=== PATIENT | male | born 1935 | race Caucasian/White ===

== ENCOUNTER 2019-05-05 12:56 | Inpatient (IN) ==
[2019-05-05] MEDS ORDERED: Acetaminophen 325 MG TABLET PO PRN (15:04)
[2019-05-05] MEDS ORDERED: Ipratropium/Albuterol Neb 3 ML IH PRN (15:08)
[2019-05-05] MEDS ORDERED: 0.9 % Sodium Chloride 1,000 ML IVC SCH (15:30)
--- NOTE | 2019-05-05 17:50 | Internal Med History&Physical ---
Date of Encounter: 05/05/19 Time of Encounter: 17:00 Assessment and Plan (1) PEG tube malfunction Current visit: No Status: Acute Status post PEG tube removal. Continue antibiotics with lactobacillus for 3 days. 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 Continue Aricept. Qualifiers: Dementia type: unspecified type Dementia behavioral disturbance: with behavioral disturbance Qualified Code(s): F03.91 - Unspecified dementia with behavioral disturbance (3) Anemia Current visit: No Status: Acute Anemia testing will be ordered in a.m. Qualifiers: Anemia type: unspecified type Qualified Code(s): D64.9 - Anemia, unspecified (4) CKD (chronic kidney disease) stage 3, GFR 30-59 ml/min Current visit: No Status: Chronic Monitor renal indices. (5) CAD (coronary artery disease) Current visit: No Status: Chronic Reduce aspirin to every other day to avoid worsening anemia. Qualifiers: Coronary Disease-Associated Artery/Lesion type: unspecified vessel or lesion type [place] vs. transplanted heart: unspecified whether [place] or transplanted heart Associated angina: angina presence unspecified Qualified Code(s): I25.10 - Atherosclerotic heart disease of [place] coronary artery without angina pectoris (6) Parkinsons disease Current visit: Yes Status: Chronic I discussed with family I did not think treatment was required at this time Internal Medicine - H&P: HPI Chief complaint: G-tube site infection Admitted From: Hospital to Hospital Transfer Plans for Post Hospital Care: Home History of present illness: Mr. Cam is a 84 year old male who was hospitalized at [facility] April 28 after admission for G-tube site infection. Wound culture grew pseudomonas aeruginosa and MRSA. He was treated with IV antibiotics during the [facility] stay and discharged to swing bed on doxycycline and Levaquin for 3 additional days of treatment. Family reports the plan is for surgery to reinsert a G-tube at a different site in a few days. G-tube was initially inserted in 2017. The patient dislodged it and has had at least 6 replacement tubes since then due to malfunction or accidental removal. He has dementia and cannot consume adequate amount of intake to maintain nutrition and hydration despite still having some oral intake. GI history is pertinent otherwise for cholecystectomy. There is no known disorders of his liver or exocrine pancreas. Past Med Surg Social Fam HX - Past Medical History Medical history: aortic aneurysm, arthritis, CHF, COPD, coronary artery disease, dementia, GERD, hyperlipidemia, hypertension, renal disease, thyroid disease Additional medical history: sepsis Psychiatric history: bipolar - Past Surgical History Surgical History: cholecystectomy, coronary bypass (CABG), other Additional surgical history: Can only MRI of 1.5 due to stents. AAA repair. Pt has enlarged prostate and needs coude if needs brower placed. PEG tube - Social History Smoking Status: Former smoker Smokeless Tobacco Status: No Alcohol use: none Drug use: none - Family History Sister Adopted: No Family Member Ethnicity: Non- Twin of Family Member: Yes, Fraternal Living Status: Still Living Hx Family Cardiac Disorders: Yes (Father from cardiac arrest) Hx Family Respiratory Disorders: No Hx Family Cancer: No Hx Family GI Disorders: No Hx Family Endocrine Disorder: No Hx Family Neuromuscular Disorders: No Hx Family Neurologic Disorders: Yes (Dementia) Hx Family HEENT Disorders: No Hx Family Autoimmune Disorders: No Internal Medicine - H&P: Meds Allopurinol [Zyloprim 300 MG] 300 mg PO DAILY 03/02/18 [History] Divalproex (24 HR) [Depakote ER (24 HR)] 250 mg PO BID 03/02/18 [History] Donepezil [Aricept] 10 mg PO HS 03/02/18 [History] Escitalopram [Lexapro] 10 mg PO HS 03/02/18 [History] Furosemide [Lasix] 20 mg PO DAILY 03/02/18 [History] Thiamine (B-1) [Vitamin B-1] 100 mg PO DAILY tablet 03/03/18 [Rx] Cranberry Fruit [Cranberry] 800 mg PO DAILY 04/02/18 [History] Finasteride [Proscar] 5 mg PO DAILY tablet 04/07/18 [Rx] Aspirin Enteric Coated [Aspirin EC] 81 mg PO DAILY 06/08/18 [History] Ipratropium/Albuterol Neb [Duoneb] 3 ml IH Q6HR PRN 06/08/18 [History] Loperamide [Imodium] 2 mg PO DAILY PRN 06/08/18 [History] Omeprazole [PriLOSEC] 20 mg PO DAILY 06/08/18 [History] Melatonin [Melatin] 3 mg PO HS 04/07/19 [History] Calcium Carbonate [Tums] 1,000 mg PO QID PRN 04/28/19 [History] Cholecalciferol (D-3) [Vitamin D] 4,000 unit PO DAILY 04/28/19 [History] Acetaminophen [Non-Aspirin] 325 mg PO Q6H PRN 04/30/19 [History] Gentamicin Sulfate [Gentak] 1 appl TP Q6H PRN 04/30/19 [History] Lactobacillus Acidophilus [Acidophilus] 1 cap PO DAILY 04/30/19 [History] Valproic Acid [Depakene] 250 mg PO BID 04/30/19 [History] Doxycycline 100 mg PO BID #7 capsule 05/05/19 [Rx] levoFLOXacin [Levaquin] 750 mg PO Q48H #3 tablet 05/05/19 [Rx] Allergy/AdvReac Type Severity Reaction Status Date / Time atorvastatin [From Lipitor] Allergy muscle Verified 04/28/19 18:02 spasm Diclofenac [From Voltaren] Allergy See Verified 04/28/19 18:02 Comments midazolam [From Versed] Allergy Anxiety Verified 04/28/19 18:02 amnesia nitrofurantoin Allergy Nausea Verified 04/28/19 18:02 [From Macrobid] vomiting oxycodone [From Percocet] Allergy See Verified 04/28/19 18:02 Comments quetiapine [From Seroquel] Allergy Drowsy Verified 04/28/19 18:02 All Systems PM: A 10-system review of systems was performed and is negative for pertinent findings except as documented above in the HPI. Review of systems: Gen.: His weight has decreased approximately 10 pounds in the past month Cardiovascular: He has history of hypertension and has known ASHD status post 3 vessel CABG followed by 3 stents approximately 2008. He had abdominal aortic aneurysm repair. He has a diagnosis of heart failure. Echocardiogram 12/22/2017 showed LVEF of 60%. No significant valvular abnormality was seen. Interventricular septum and posterior wall thickness measurements were elevated at 1.40 cm each. E/A ratio was 0.8. There was no reported pulmonary hypertension. There is no history of DVT or pulmonary embolus. Respiratory: He smoked from approximately age [age] up to 2 packs per day. He has a diagnosis of COPD uses oxygen on a prn basis at home. 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 He follows with a [employer] technician. He has bladder irrigation 3 times weekly with a vinegar/water solution for frequent UTIs. Neurologic: He has dementia. He has had frontal and left parietal CVAs docu mented on MRI/CT scans in the past. There is no history of seizures. Endocrine: He has history of hyperlipidemia. Family was unaware of elevated TSH on most recent labs. He has no known diabetes. Hematology/oncology: He has chronic anemia from presumed CKD. There is no known internal malignancies or other blood disorders. Psychiatric: He was diagnosed with bipolar disorder in the past. He has no other mental health diagnoses. Muscle skeletal: He has DJD and history of gout. - Constitutional Vitals: Temp Pulse Resp BP Pulse Ox 98.3 F 85 17 147/91 94 05/05/19 16:56 05/05/19 16:56 05/05/19 16:56 05/05/19 16:56 05/05/19 16:56 Exam: Gen.: He is a well-developed well-nourished male resting comfortably in bed who appears in no acute distress HEENT: Head is atraumatic and normocephalic. Eyes: EOMI. There is no scleral icterus. Mouth: Mucosa is moist. Neck: Supple and nontender. There is no thyromegaly or adenopathy noted. Heart: Regular without murmurs gallops or ectopics Lungs: No wheezes or crackles are heard. Abdomen: Soft and nontender. A dressing is in place at the G-tube site. I did not remove the dressing. There is a well-healed midline abdominal surgical scar from previous AAA surgery. Extremities: He has mild DJD changes of his hands. There is no cyanosis edema or clubbing noted. Dorsalis pedis and posterior tibial pulses are trace palpable bilaterally. Neurologic: Mental status: He is awake and alert and answers an occasional question with a one-word answer. He is not conversational. He does not follow all commands. Cranial nerves: Smile is symmetric. Forehead wrinkles bilaterally. EOMI. He does not protrude his tongue. Motor: He has significant stiffness rigidity and cogwheeling on passive range of motion of his wrists and elbows. He has a tremor at rest of his jaw. No further neurologic testing is attempted. Skin: Warm and dry
[2019-05-05] MEDS: Aspirin Enteric Coated 81 MG Tablet PO SCH (18:23)
[2019-05-05] MEDS: 0.45 % Sodium Chloride w/KCl 20 MEQ/1,000 ML MLS IVC SCH (18:45)
[2019-05-05] MEDS ORDERED: *HR* Metoprolol 5 MG/5 ML VIAL IVP ONE (19:49)
[2019-05-05] MEDS ORDERED: Valproic Acid 250 MG CAPSULE PO SCH (21:00)
[2019-05-05] MEDS: Acetaminophen 325 MG TABLET PO SCH (22:33)
[2019-05-05] MEDS: Doxycycline 100 MG CAPSULE PO SCH (22:33)
[2019-05-05] MEDS: Divalproex (24 HR) 250 MG TABLET PO SCH (22:33)
[2019-05-05] MEDS: levoFLOXacin 500 MG TABLET PO SCH (22:34)
[2019-05-06] MEDS: Melatonin 3 MG TABLET PO SCH ×2 (04:25→22:12)
[2019-05-06 05:52] LABS: Basophils % 0.5 %; Eosinophils # 0.3 K/mcL (0.0-0.6); Eosinophils % 3.3 %; Hematocrit 27.9 % (37.5-50.1); Immature Granulocytes % 0.9 % (0-4); Lymphocytes # 1.7 K/mcL (0.6-4.6); Lymphocytes % 21.6 %; Mean Corpuscular HGB Conc 32.3 g/dL (31.6-35.5); Mean Corpuscular Hemoglobin 29.4 pg (28.0-33.3); Mean Corpuscular Volume 91.2 fL (83.0-100.0); Mean Platelet Volume 10.6 fL (9.4-12.4); Monocytes # 0.4 K/mcL (0.0-1.3); Monocytes % 5.1 %; Neutrophils # 5.5 K/mcL (1.6-8.9); Platelet Count 114 K/mcL (140-400); Red Blood Count 3.06 M/mcL (4.19-5.50); Red Cell Distribution Width 16.5 % (11.5-14.5); Segmented Neutrophils % 68.6 %
[2019-05-06 06:19] LABS: Alanine Aminotransferase 3 Units/L (7-52); Albumin 3.1 g/dL (3.5-5.7); Albumin/Globulin Ratio 0.9 (1.1-2.2); Alkaline Phosphatase 45 Units/L (34-104); Aspartate Amino Transferase 10 Units/L (13-39); BUN/Creatinine Ratio 12 (6-26); Bilirubin,Total 0.5 mg/dL (0.3-1.0); Blood Urea Nitrogen 16 mg/dL (8-23); Calcium 8.6 mg/dL (8.6-10.3); Carbon Dioxide 22 mEq/L (23-29); Chloride 103 mEq/L (98-107); Globulin 3.3 g/dL (2.4-3.5); Glucose 91 mg/dL (70-105); Osmolality,Calculated 283 (280-300); Potassium 3.9 mEq/L (3.5-5.1); Sodium 136 mEq/L (136-145); Total Protein 6.4 g/dL (6.4-8.9); eGFR For African Americans > 60 (> 60); eGFR For Non-African Americans 50 (> 60)
[2019-05-06 06:29] LABS: Thyroid Stimulating Hormone 4.489 mcIU/mL (0.340-5.600)
[2019-05-06 08:46] LABS: Transferrin 152 mg/dL (203-362)
[2019-05-06] MEDS ORDERED: Thiamine (B-1) 100 MG TABLET PO SCH (09:00)
[2019-05-06] MEDS ORDERED: Aspirin Enteric Coated 81 MG Tablet PO SCH (09:00)
[2019-05-06] MEDS ORDERED: CRANBERRY FRUIT PO SCH (09:00)
[2019-05-06 09:04] LABS: Ferritin 501 ng/mL (20-250)
[2019-05-06 09:10] LABS: Folate 7.6 ng/mL (3.0-16.0)
[2019-05-06] MEDS: Lactobacillus 1 EACH CAP.SPRINK PO SCH (09:25)
[2019-05-06] MEDS: Acetaminophen 325 MG TABLET PO SCH ×2 (09:25→22:12)
[2019-05-06] MEDS: Furosemide 20 MG TABLET PO SCH (09:25)
[2019-05-06] MEDS: Doxycycline 100 MG CAPSULE PO SCH ×2 (09:25→22:12)
[2019-05-06] MEDS: Divalproex (24 HR) 250 MG TABLET PO SCH ×2 (09:25→22:12)
[2019-05-06] MEDS: Finasteride 5 MG TABLET PO SCH (09:25)
[2019-05-06 10:22] LABS: % Iron Saturation 23 % (20-55); Iron 49 mcg/dL (65-175)
[2019-05-06] MEDS: Cholecalciferol (D-3) 1,000 UNIT (25MCG) TABLET PO SCH (11:02)
[2019-05-06] MEDS: 0.45 % Sodium Chloride w/KCl 20 MEQ/1,000 ML MLS IVC SCH (11:07)
--- NOTE | 2019-05-06 11:08 | Internal Med Progress Note ---
Date of Encounter: 05/06/19 Time of Encounter: 11:00 - Assessment and plan (1) PEG tube malfunction Current Visit: No Status: Acute Assessment and plan: May 06. Status post PEG tube removal. Continue antibiotics with lactobacillus through May 08. (2) Dementia Current Visit: No Status: Chronic Assessment and plan: May 06. 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 Continue Aricept. Qualifiers: Dementia type: unspecified type Dementia behavioral disturbance: with behavioral disturbance Qualified Code(s): F03.91 - Unspecified dementia with behavioral disturbance (3) Anemia Current Visit: No Status: Acute Assessment and plan: May 06. Anemia testing showed iron 49, transferrin saturation 23%, transferrin 152, ferritin 501, B12 718, and folate 7.6. Anemia is likely due to chronic kidney disease. Hemoglobin improved today to 9.0. Continue to monitor. Qualifiers: Anemia type: unspecified type Qualified Code(s): D64.9 - Anemia, unspecified (4) CKD (chronic kidney disease) stage 3, GFR 30-59 ml/min Current Visit: No Status: Chronic Assessment and plan: May 06. Creatinine stable today at 1.35. Continue to monitor. (5) CAD (coronary artery disease) Current Visit: No Status: Chronic Assessment and plan: May 06. Remain on aspirin 81 mg every other day. Qualifiers: Coronary Disease-Associated Artery/Lesion type: unspecified vessel or lesion type [place] vs. transplanted heart: unspecified whether [place] or transplanted heart Associated angina: angina presence unspecified Qualified Code(s): I25.10 - Atherosclerotic heart disease of [place] coronary artery without angina pectoris (6) Parkinsons disease Current Visit: Yes Status: Chronic Assessment and plan: May 06. Observe without medication. (7) Dyspnea Current Visit: Yes Status: Acute Assessment and plan: May 06. Will order chest x-ray and BNP peptide. Qualifiers: Dyspnea type: unspecified Qualified Code(s): R06.00 - Dyspnea, unspecified - Subjective Interval history: May 06. No new problems have arisen. His jymsyllw-ac-nnw states she is concerned he appears dyspneic. - Constitutional Vitals: Temp Pulse Resp BP Pulse Ox 98.1 F 80 18 169/89 99 05/06/19 06:49 05/06/19 06:49 05/06/19 10:47 05/06/19 06:49 05/06/19 10:47 Exam: He is lying in bed and appears in no significant distress. His respirations appear very minimally labored. I reviewed his medications, vitals, and lab results. Internal Medicine: Result - Labs CBC & Chem 7: 05/06/19 05:10 05/06/19 05:10 Labs: Short CBC 05/06/19 Range/Units 05:10 WBC 8.0 D (4.3-11.1) K/mcL Hgb 9.0 L D (12.9-16.9) g/dL Hct 27.9 L (37.5-50.1) % Plt Count 114 L (140-400) K/mcL Neutrophils # 5.5 (1.6-8.9) K/mcL BMP 05/06/19 05:10 Sodium 136 Potassium 3.9 Chloride 103 Carbon Dioxide 22 L BUN 16 Creatinine 1.35 H Glucose 91 Calcium 8.6 Liver Function 05/06/19 Range/Units 05:10 Total Bilirubin 0.5 (0.3-1.0) mg/dL AST 10 L (13-39) Units/L ALT 3 L (7-52) Units/L Alkaline Phosphatase 45 (34-104) Units/L Albumin 3.1 L (3.5-5.7) g/dL Consult Discharge Plan - Plan [facility]errals: [facility]Primary Care Provider[facility] - 1 week
[2019-05-06] MEDS ORDERED: Furosemide 40 MG/4 ML VIAL IVP ONE (14:28)
[2019-05-07] MEDS: Divalproex (24 HR) 250 MG TABLET PO SCH ×3 (01:18→22:23)
[2019-05-07] MEDS: Doxycycline 100 MG CAPSULE PO SCH ×3 (01:18→22:23)
[2019-05-07] MEDS: Melatonin 3 MG TABLET PO SCH ×2 (01:19→22:22)
[2019-05-07] MEDS: Acetaminophen 325 MG TABLET PO SCH ×3 (01:20→22:22)
[2019-05-07 06:18] LABS: Basophils % 0.6 %; Eosinophils # 0.2 K/mcL (0.0-0.6); Eosinophils % 2.9 %; Hematocrit 25.7 % (37.5-50.1); Hemoglobin 8.4 g/dL (12.9-16.9); Immature Granulocytes % 0.6 % (0-4); Lymphocytes # 1.5 K/mcL (0.6-4.6); Lymphocytes % 21.2 %; Mean Corpuscular HGB Conc 32.7 g/dL (31.6-35.5); Mean Corpuscular Hemoglobin 29.7 pg (28.0-33.3); Mean Corpuscular Volume 90.8 fL (83.0-100.0); Mean Platelet Volume 10.3 fL (9.4-12.4); Monocytes # 0.4 K/mcL (0.0-1.3); Neutrophils # 4.8 K/mcL (1.6-8.9); Platelet Count 106 K/mcL (140-400); Red Blood Count 2.83 M/mcL (4.19-5.50); Red Cell Distribution Width 16.4 % (11.5-14.5); Segmented Neutrophils % 68.7 %
[2019-05-07 06:52] LABS: Calcium 8.4 mg/dL (8.6-10.3); Potassium 3.9 mEq/L (3.5-5.1)
[2019-05-07] MEDS: Lactobacillus 1 EACH CAP.SPRINK PO SCH (09:16)
[2019-05-07] MEDS: Cholecalciferol (D-3) 1,000 UNIT (25MCG) TABLET PO SCH (09:16)
[2019-05-07] MEDS: Furosemide 20 MG TABLET PO SCH (09:16)
[2019-05-07] MEDS: Finasteride 5 MG TABLET PO SCH (09:16)
[2019-05-07] MEDS: Aspirin Enteric Coated 81 MG Tablet PO SCH (17:04)
[2019-05-07] MEDS: levoFLOXacin 500 MG TABLET PO SCH (22:22)
[2019-05-08] MEDS: Furosemide 20 MG TABLET PO SCH (12:43)
[2019-05-08] MEDS: Cholecalciferol (D-3) 1,000 UNIT (25MCG) TABLET PO SCH (12:43)
[2019-05-08] MEDS: Lactobacillus 1 EACH CAP.SPRINK PO SCH (12:43)
[2019-05-08] MEDS: Doxycycline 100 MG CAPSULE PO SCH ×2 (12:43→21:17)
[2019-05-08] MEDS: Acetaminophen 325 MG TABLET PO SCH ×2 (12:43→21:18)
[2019-05-08] MEDS: Divalproex (24 HR) 250 MG TABLET PO SCH ×2 (12:43→21:18)
[2019-05-08] MEDS: Finasteride 5 MG TABLET PO SCH (12:43)
--- NOTE | 2019-05-08 13:31 | Event Note ---
Date of Encounter: 05/08/19 Time of Encounter: 13:31 Called to bedside as daughter concerned that patient was not getting enough fluid intake. Suspect oral intake appox 600cc/day. Will add NS at 50ml/hr to arrive at 1200cc/d of IVF. Will continue other meds and order labs for AM along with CXR to re-assess.
[2019-05-08] MEDS: 0.9 % Sodium Chloride 1,000 ML IVC SCH (14:27)
[2019-05-08 16:21] LABS: Bilirubin,Urine Negative (Negative); Blood,Urine Small (Negative); Clarity,Urine Clear (Clear); Color,Urine Yellow (Yellow); Glucose,Urine (UA) Normal (Normal); Ketones,Urine Negative (Negative); Leukocyte Esterase,Urine Negative (Negative); Nitrite,Urine Negative (Negative); PH,Urine 5.5 pH Units (5.0-8.0); Protein,Urine 30 mg/dL (Neg-Trace); Specific Gravity,Urine 1.015 (1.010-1.025); Urobilinogen,Urine Normal (Normal)
[2019-05-09 06:59] LABS: Albumin 2.9 g/dL (3.5-5.7); Albumin/Globulin Ratio 0.9 (1.1-2.2); Bilirubin,Total 0.5 mg/dL (0.3-1.0); Calcium 8.4 mg/dL (8.6-10.3); Globulin 3.1 g/dL (2.4-3.5); Magnesium 1.7 mg/dL (1.6-2.6); Potassium 3.8 mEq/L (3.5-5.1)
[2019-05-09 07:16] LABS: Hematocrit 26.1 % (37.5-50.1); Hemoglobin 8.3 g/dL (12.9-16.9); Mean Corpuscular HGB Conc 31.8 g/dL (31.6-35.5); Mean Corpuscular Hemoglobin 29.4 pg (28.0-33.3); Mean Corpuscular Volume 92.6 fL (83.0-100.0); Mean Platelet Volume 11.2 fL (9.4-12.4); Platelet Count 125 K/mcL (140-400); Red Blood Count 2.82 M/mcL (4.19-5.50); Red Cell Distribution Width 16.9 % (11.5-14.5); White Blood Count 5.9 K/mcL (4.3-11.1)
[2019-05-09] MEDS: Furosemide 20 MG TABLET PO SCH (09:47)
[2019-05-09] MEDS: Lactobacillus 1 EACH CAP.SPRINK PO SCH (09:47)
[2019-05-09] MEDS: Finasteride 5 MG TABLET PO SCH (09:47)
[2019-05-09] MEDS: Acetaminophen 325 MG TABLET PO SCH ×2 (09:48→21:29)
[2019-05-09] MEDS: Cholecalciferol (D-3) 1,000 UNIT (25MCG) TABLET PO SCH (09:48)
[2019-05-09] MEDS: 0.9 % Sodium Chloride 1,000 ML IVC SCH (09:56)
[2019-05-09] MEDS: Divalproex (24 HR) 250 MG TABLET PO SCH ×2 (11:14→21:30)
[2019-05-09] MEDS: Aspirin Enteric Coated 81 MG Tablet PO SCH (16:49)
[2019-05-09] MEDS: levoFLOXacin 500 MG TABLET PO SCH (21:29)
[2019-05-10] MEDS: 0.9 % Sodium Chloride 1,000 ML IVC SCH (05:58)
[2019-05-10] MEDS ORDERED: 0.45 % Sodium Chloride w/KCl 20 MEQ/1,000 ML MLS IVC SCH (09:30)
--- NOTE | 2019-05-10 09:37 | Internal Med Progress Note ---
Date of Encounter: 05/10/19 Time of Encounter: 09:25 - Assessment and plan (1) PEG tube malfunction Current Visit: No Status: Acute Assessment and plan: May 06. Status post PEG tube removal. Continue antibiotics with lactobacillus through May 08. May 10. Antibiotics will be discontinued. (2) Dementia Current Visit: No Status: Chronic Assessment and plan: May 06. 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 Continue Aricept. Qualifiers: Dementia type: unspecified type Dementia behavioral disturbance: with behavioral disturbance Qualified Code(s): F03.91 - Unspecified dementia with behavioral disturbance (3) Anemia Current Visit: No Status: Acute Assessment and plan: May 06. Anemia testing showed iron 49, transferrin saturation 23%, transferrin 152, ferritin 501, B12 718, and folate 7.6. Anemia is likely due to chronic kidney disease. Hemoglobin improved today to 9.0. Continue to monitor. May 10. Hemoglobin decreased to 8.3 yesterday. Recheck labs in a.m. Qualifiers: Anemia type: unspecified type Qualified Code(s): D64.9 - Anemia, unspecified (4) CKD (chronic kidney disease) stage 3, GFR 30-59 ml/min Current Visit: No Status: Chronic Assessment and plan: May 06. Creatinine stable today at 1.35. Continue to monitor. (5) CAD (coronary artery disease) Current Visit: No Status: Chronic Assessment and plan: May 06. Remain on aspirin 81 mg every other day. Qualifiers: Coronary Disease-Associated Artery/Lesion type: unspecified vessel or lesion type [place] vs. transplanted heart: unspecified whether [place] or transplanted heart Associated angina: angina presence unspecified Qualified Code(s): I25.10 - Atherosclerotic heart disease of [place] coronary artery without angina pectoris (6) Parkinsons disease Current Visit: Yes Status: Chronic Assessment and plan: May 06. Observe without medication. (7) Dyspnea Current Visit: Yes Status: Acute Assessment and plan: May 06. Will order chest x-ray and BNP peptide. May 10. Clinically improved. Recheck labs in a.m. Qualifiers: Dyspnea type: unspecified Qualified Code(s): R06.00 - Dyspnea, unspecified - Subjective Interval history: May 06. No new problems have arisen. His vvtwwyal-su-zyy states she is concerned he appears dyspneic. May 10. He has no new complaints. - Constitutional Vitals: Temp Pulse Resp BP Pulse Ox 98.3 F 89 17 147/84 100 05/10/19 07:00 05/10/19 07:00 05/10/19 07:00 05/10/19 07:00 05/10/19 07:00 Exam: He is resting comfortably in bed and appears in no acute distress. His affect is overall cheerful. He is pleasant but confused. Heart is regular with rate approximately 92/m. Lungs are clear. Extremities show no edema. I reviewed his medications and lab results. Internal Medicine: Result - Labs CBC & Chem 7: 05/09/19 07:10 05/09/19 05:45 Consult Discharge Plan - Plan [facility]errals: [facility] [Primary Care Provider] - 1 week
[2019-05-10] MEDS: Lactobacillus 1 EACH CAP.SPRINK PO SCH (09:57)
[2019-05-10] MEDS: Divalproex (24 HR) 250 MG TABLET PO SCH ×2 (09:57→21:11)
[2019-05-10] MEDS: Finasteride 5 MG TABLET PO SCH (09:57)
[2019-05-10] MEDS: Furosemide 20 MG TABLET PO SCH (09:57)
[2019-05-10] MEDS: Acetaminophen 325 MG TABLET PO SCH ×2 (09:58→21:10)
[2019-05-10] MEDS: Cholecalciferol (D-3) 1,000 UNIT (25MCG) TABLET PO SCH (09:58)
[2019-05-11 07:09] VITALS: BP 158/94
[2019-05-11 07:41] LABS: Basophils # 0.1 K/mcL (0.0-0.2); Basophils % 0.8 %; Eosinophils # 0.2 K/mcL (0.0-0.6); Eosinophils % 3.6 %; Hematocrit 26.3 % (37.5-50.1); Hemoglobin 8.3 g/dL (12.9-16.9); Immature Granulocytes % 0.8 % (0-4); Lymphocytes # 1.6 K/mcL (0.6-4.6); Lymphocytes % 24.6 %; Mean Corpuscular HGB Conc 31.6 g/dL (31.6-35.5); Mean Corpuscular Hemoglobin 29.2 pg (28.0-33.3); Mean Corpuscular Volume 92.6 fL (83.0-100.0); Mean Platelet Volume 10.2 fL (9.4-12.4); Monocytes # 0.4 K/mcL (0.0-1.3); Monocytes % 6.6 %; Neutrophils # 4.1 K/mcL (1.6-8.9); Platelet Count 120 K/mcL (140-400); Red Blood Count 2.84 M/mcL (4.19-5.50); Red Cell Distribution Width 16.5 % (11.5-14.5); Segmented Neutrophils % 63.6 %; White Blood Count 6.5 K/mcL (4.3-11.1)
[2019-05-11 07:51] LABS: Calcium 8.4 mg/dL (8.6-10.3)
--- NOTE | 2019-05-11 17:36 | Discharge Summary ---
Orders not resulted at time of discharge: Pending orders 05/08/19 11:25 Valproate Total & Free Stat Date of Encounter: 05/11/19 Time of Encounter: 17:32 - Discharge Diagnosis (1) PEG tube malfunction Priority: Primary Status: Acute (2) Dementia Priority: Secondary Status: Chronic Qualifiers: Dementia type: unspecified type Dementia behavioral disturbance: with behavioral disturbance Qualified Code(s): F03.91 - Unspecified dementia with behavioral disturbance (3) Anemia Priority: Secondary Status: Acute Qualifiers: Anemia type: unspecified type Qualified Code(s): D64.9 - Anemia, unspecified (4) CKD (chronic kidney disease) stage 3, GFR 30-59 ml/min Priority: Secondary Status: Chronic (5) CAD (coronary artery disease) Priority: Secondary Status: Chronic Qualifiers: Coronary Disease-Associated Artery/Lesion type: unspecified vessel or lesion type [place] vs. transplanted heart: unspecified whether [place] or transplanted heart Associated angina: angina presence unspecified Qualified Code(s): I25.10 - Atherosclerotic heart disease of [place] coronary artery without angina pectoris (6) Parkinsons disease Priority: Secondary Status: Chronic (7) Dyspnea Priority: Secondary Status: Acute Qualifiers: Dyspnea type: unspecified Qualified Code(s): R06.00 - Dyspnea, unspecified Hospital course: Mr. Cam is a 84 year old male who was hospitalized at [facility] April 28 after admission for G-tube site infection. Wound culture grew pseudomonas aeruginosa and MRSA. He was treated with IV antibiotics during the [facility] stay and discharged to swing bed on doxycycline and Levaquin for 3 additional days of treatment. Family reports the plan is for surgery to reinsert a G-tube at a different site in a few days. Initial orders were written by the discharging physicians at [facility]. I saw him on May 05 and performed a swing bed history and physical. He was continued on Levaquin and doxycycline as prescribed by [facility] physicians. Fever eamon to 100.0 on May 07 returned to normal range for the remainder of his swing bed stay. On May 11 he was seen at [facility] GI service for reevaluation of the G-tube site. He was sent to emergency room from the office visit and admitted at [facility]. - Time Spent with Patient Total time spent providing and/or coordinating discharge services: - Discharge Medications Prescriptions: No Action Allopurinol [Zyloprim 300 MG] 300 mg PO DAILY Donepezil [Aricept] 10 mg PO HS Escitalopram [Lexapro] 10 mg PO DAILY Furosemide [Lasix] 20 mg PO DAILY Thiamine (B-1) [Vitamin B-1] 100 mg PO DAILY tablet Cranberry Fruit [Cranberry] 800 mg PO DAILY Finasteride [Proscar] 5 mg PO DAILY tablet Aspirin Enteric Coated [Aspirin EC] 81 mg PO QMWFSU Omeprazole [PriLOSEC] 20 mg PO DAILY Melatonin [Melatin] 3 mg PO HS PRN PRN Reason: Sleep Cholecalciferol (D-3) [Vitamin D] 2,000 unit PO DAILY Acetaminophen [Non-Aspirin] 650 mg PO BID Lactobacillus Acidophilus [Acidophilus] 1 cap PO DAILY Divalproex (12 HR) [Depakote (12 HR)] 250 mg PO BID Home Medications: Allopurinol [Zyloprim 300 MG] 300 mg PO DAILY 03/02/18 [History] Donepezil [Aricept] 10 mg PO HS 03/02/18 [History] Escitalopram [Lexapro] 10 mg PO DAILY 03/02/18 [History] Furosemide [Lasix] 20 mg PO DAILY 03/02/18 [History] Thiamine (B-1) [Vitamin B-1] 100 mg PO DAILY tablet 03/03/18 [Rx] Cranberry Fruit [Cranberry] 800 mg PO DAILY 04/02/18 [History] Finasteride [Proscar] 5 mg PO DAILY tablet 04/07/18 [Rx] Aspirin Enteric Coated [Aspirin EC] 81 mg PO QMWFSU 06/08/18 [History] Omeprazole [PriLOSEC] 20 mg PO DAILY 06/08/18 [History] Melatonin [Melatin] 3 mg PO HS PRN 04/07/19 [History] Cholecalciferol (D-3) [Vitamin D] 2,000 unit PO DAILY 04/28/19 [History] Acetaminophen [Non-Aspirin] 650 mg PO BID 04/30/19 [History] Lactobacillus Acidophilus [Acidophilus] 1 cap PO DAILY 04/30/19 [History] Divalproex (12 HR) [Depakote (12 HR)] 250 mg PO BID 05/11/19 [History] Allergies/Adverse Reactions: Allergy/AdvReac Type Severity Reaction Status Date / Time atorvastatin [From Lipitor] Allergy muscle Verified 05/11/19 15:13 spasm Diclofenac [From Voltaren] Allergy See Verified 05/11/19 15:13 Comments midazolam [From Versed] Allergy Anxiety Verified 05/11/19 15:13 amnesia nitrofurantoin Allergy Nausea Verified 05/11/19 15:13 [From Macrobid] vomiting oxycodone [From Percocet] Allergy See Verified 05/11/19 15:13 Comments quetiapine [From Seroquel] Allergy Drowsy Verified 05/11/19 15:13 Date of admission: 05/05/19 15:26 [facility] Consults: 05/05/19 15:02 Consult to Charge Weigher [CONS] Routine Reason for SW Consult: discharge planning 05/06/19 11:33 Consult to Occupational Therapy [CONS] Routine Comment: Evaluate, develop and implement POC Reason for Consult: Weakness Does patient have active BEDREST order?: No Is patient medically & hemodynamically stable?: Yes Patient assessed for mobility or mobilized this visit?: Yes Consult to Physical Therapy [CONS] Routine Comment: Evaluate, develop and implement POC Reason for Consult: Weakness Does patient have active BEDREST order?: No Is patient medically & hemodynamically stable?: Yes Patient assessed for mobility or mobilized this visit?: Yes - Constitutional Vitals: Temp Pulse Resp BP Pulse Ox 98.4 F 92 16 158/94 98 05/11/19 07:08 05/11/19 07:08 05/11/19 07:08 05/11/19 07:08 05/11/19 07:08 - Patient Status Disposition: Transfer Other - Discharge Instructions
[2019-05-12 01:15] LABS: Valproate Free 7 ug/mL (7-23); Valproate Total 37 ug/mL (50-125)
[2019-05-12 10:49] LABS: Valproate % Free 19 % (5-18)
== END 2019-05-11 17:36 | disposition other institution (70) | DRG 394 ==
LOC: INPPIK 15:26
PROVIDERS: ADMIT Internal Medicine; ATTEND Internal Medicine